=== PATIENT | female | born 1970 | race Hispanic/Latino ===

== ENCOUNTER 2022-01-14 09:47 | Emergency (ER) | payer OTHER ==
[~2022-01-14] VITALS: Ht 162.6 cm; Wt 77.9 kg
[2022-01-14] MEDS ORDERED: LEVOTHYROXINE112 MC1 PO (10:09)
[2022-01-14] MEDS ORDERED: AZATHIOPRINE50 MG PO (10:09)
[2022-01-14] MEDS ORDERED: HYDROXYCHLOROQ200 MG PO (10:10)
[2022-01-14] MEDS ORDERED: PREDNISONE5 MG PO (10:10)
[2022-01-14] MEDS ORDERED: OMEPRAZOLE20 MG PO (10:11)
[2022-01-14] MEDS ORDERED: LOSARTAN POTASS25 MG PO (10:11)
[2022-01-14] MEDS ORDERED: SYMBICORT 16010.2 GM INH (10:12)
[2022-01-14] MEDS ORDERED: PREDNISONE20 MG PO (11:51)
[2022-01-14] MEDS ORDERED: TAMIFLU75 MG PO (11:51)
[2022-01-14] MEDS ORDERED: VENTOLIN HFA18 GM INH (11:51)
== END 2022-01-14 12:03 | disposition home or self-care (01) ==
LOC: ED 09:47
DX: J10.1 Influenza due to other identified influenza virus with other respiratory manifestations (principal); I10 Essential (primary) hypertension; Z79.899 Other long term (current) drug therapy; Z79.52 Long term (current) use of systemic steroids; Z20.822 Contact with and (suspected) exposure to COVID-19
CPT/HCPCS: 71045; 87502; 94640; 99285-25; C9803; J1100; U0003